=== PATIENT | male | born 1955 | race Caucasian/White ===

== ENCOUNTER 2017-05-24 21:52 | Emergency (ER) | payer BC ==
[~2017-05-24] VITALS: Ht 170.2 cm; Wt 93.6 kg
[2017-05-24 22:01] VITALS: BP 177/84; PULSE 77; RESP 20; TEMP 98; O2SAT 97
[2017-05-24] MEDS ORDERED: SODIUM CHLOR 0.9% 1000 ML INJ 1,000 ML IV SCH (22:10)
--- NOTE | 2017-05-24 22:13 | PD ---
HPI Chief Complaint: Abdominal Pain Time Seen by Provider: 22:06 Travel History International Travel<30 days: No Contact w/Intl Traveler<30days: No Traveled to known affect area: No History of Present Illness HPI ABOUT 2 HRS AGO, NEW ONSET OF LLQ PAIN, FULLNESS TO CRAMPY, NONRADIATING, 03/01, ASSOCIATED WITH DIARRHEA AND NAUSEA BUT WITHOUT VOMITING...ALSO DENIES NAVARRO/CP/ FEVER/COUGH/BACK PAIN/HEMATURIA/ ALL:NKDA PMHX/PSHX: PERIPHERAL ARTERY DISEASE, HERNIA REPAIR PFSH Social History Tobacco Use: No Allergies-Medications (Allergen,Severity, Reaction): Coded Allergies: No Known Allergies (Verified Allergy, Unknown, 05/24/17) Reported Meds & Prescriptions Reported Meds & Active Scripts Active Lortab (Hydrocodone-Acetaminophen) 5-325 Mg Tab 1 Tab PO Q6H PRN Zofran Odt (Ondansetron Odt) 4 Mg Tab 4 Mg SL Q6HR PRN Ketorolac (Ketorolac Tromethamine) 10 Mg Tab 10 Mg PO TID Review of Systems Except as stated in HPI: all other systems reviewed are Neg General / Constitutional: No: Fever Eyes: No: Visual changes HENT: No: Headaches Cardiovascular: No: Chest Pain or Discomfort Respiratory: No: Shortness of Breath Gastrointestinal: Positive: Abdominal Pain Genitourinary: No: Dysuria Musculoskeletal: No: Pain Skin: No Rash Neurologic: No: Weakness Psychiatric: No: Depression Endocrine: No: Polydipsia Hematologic/Lymphatic: No: Easy Bruising Physical Exam Narrative GENERAL: SKIN: Warm and dry. HEAD: Atraumatic. Normocephalic. EYES: Pupils equal and round. No scleral icterus. No injection or drainage. ENT: No nasal bleeding or discharge. Mucous membranes pink and moist. NECK: Trachea midline. No JVD. CARDIOVASCULAR: Regular rate and rhythm. RESPIRATORY: No accessory muscle use. Clear to auscultation. Breath sounds equal bilaterally. GASTROINTESTINAL: Abdomen soft, non-tender, nondistended. LLQ TTP MUSCULOSKELETAL: Extremities without clubbing, cyanosis, or edema. No obvious deformities. NEUROLOGICAL: Awake and alert. No obvious cranial nerve deficits. Motor grossly within normal limits. Five out of 5 muscle strength in the arms and legs. Normal speech. PSYCHIATRIC: Appropriate mood and affect; insight and judgment normal. Data Data Last Documented VS Vital Signs Date Time Temp Pulse Resp B/P (MAP) Pulse Ox O2 Delivery O2 Flow Rate FiO2 05/24/17 23:31 77 18 95 05/24/17 23:28 97.9 Room Air Orders Orders Complete Blood Count With Diff (05/24/17 22:06) Comprehensive Metabolic Panel (05/24/17 22:06) Lipase (05/24/17 22:06) Urinalysis - C+S If Indicated (05/24/17 22:06) Ct Abd/Pel W/O Iv Contrast (05/24/17 22:06) Iv Access Insert/Monitor (05/24/17 22:06) Ecg Monitoring (05/24/17 22:06) Oximetry (05/24/17 22:06) NPO (05/24/17 22:) Electrocardiogram (05/24/17 22:06) Sodium Chlor 0.9% 1000 Ml Inj (Ns 1000 M (05/24/17 22:10) Morphine Inj (Morphine Inj) (05/24/17 22:45) Labs Laboratory Tests Test 05/24/17 22:20 White Blood Count 4.6 TH/MM3 Red Blood Count 4.17 MIL/MM3 Hemoglobin 12.4 GM/DL Hematocrit 36.7 % Mean Corpuscular Volume 88.0 FL Mean Corpuscular Hemoglobin 29.6 PG Mean Corpuscular Hemoglobin Concent 33.7 % Red Cell Distribution Width 11.8 % Platelet Count 142 TH/MM3 Mean Platelet Volume 8.1 FL Neutrophils (%) (Auto) 69.5 % Lymphocytes (%) (Auto) 21.4 % Monocytes (%) (Auto) 7.0 % Eosinophils (%) (Auto) 1.5 % Basophils (%) (Auto) 0.6 % Neutrophils # (Auto) 3.2 TH/MM3 Lymphocytes # (Auto) 1.0 TH/MM3 Monocytes # (Auto) 0.3 TH/MM3 Eosinophils # (Auto) 0.1 TH/MM3 Basophils # (Auto) 0.0 TH/MM3 CBC Comment DIFF FINAL Differential Comment Blood Urea Nitrogen 16 MG/DL Creatinine 0.98 MG/DL Random Glucose 138 MG/DL Total Protein 6.6 GM/DL Albumin 3.5 GM/DL Calcium Level 8.3 MG/DL Alkaline Phosphatase 62 U/L Aspartate Amino Transf (AST/SGOT) 21 U/L Alanine Aminotransferase (ALT/SGPT) 31 U/L Total Bilirubin 0.3 MG/DL Sodium Level 140 MEQ/L Potassium Level 3.6 MEQ/L Chloride Level 105 MEQ/L Carbon Dioxide Level 28.4 MEQ/L Anion Gap 7 MEQ/L Estimat Glomerular Filtration Rate 78 ML/MIN Lipase 143 U/L MDM Medical Decision Making Medical Screen Exam Complete: Yes Emergency Medical Condition: Yes Medical Record Reviewed: Yes Differential Diagnosis COLITIS V DIVERTIC V KIDNEY STONES Narrative Course CT SHOWED NO DIVERTIC OR COLITIS BUT IT DID SHOW KIDNEY STONES Diagnosis Primary Impression: LEFT URETEROLITHIASIS Patient Instructions: General Instructions, Kidney Stones (ED) Scripts Hydrocodone-Acetaminophen (Lortab) 5-325 Mg Tab 1 TAB PO Q6H Y for PAIN, #20 TAB 0 Refills Prov: Arash Almeida MD 05/24/17 Ondansetron Odt (Zofran Odt) 4 Mg Tab 4 MG SL Q6HR Y for Nausea/Vomiting, #20 TAB 0 Refills Prov: Arash Almeida MD 05/24/17 Ketorolac (Ketorolac) 10 Mg Tab 10 MG PO TID for Pain Management, #21 TAB 0 Refills Prov: Arash Almeida MD 05/24/17 Disposition: 01 DISCHARGE HOME Condition: Stable Arash Almeida MD May 24, 2017 22:13
[2017-05-24 22:14] VITALS: O2SAT 97
[2017-05-24] MEDS ORDERED: MORPHINE SULFATE 4 MG/ML INJ IV PUSH ONE ×2 (22:15→22:30)
[2017-05-24] MEDS ORDERED: ONDANSETRON HCL 4 MG/2 ML VIAL IVP ONE (22:15)
[2017-05-24 22:22] LABS: AUTOMATED NEUTROPHIL # 3.2 TH/MM3 (1.8-7.7); BASOPHIL % 0.6 % (0.0-2.0); EOSINOPHIL # 0.1 TH/MM3 (0-0.4); EOSINOPHIL % 1.5 % (0.0-4.0); HEMATOCRIT 36.7 % (39.0-51.0); HEMO FLAGS DIFF FINAL; LYMPH % 21.4 % (9.0-44.0); MEAN CORPUSCULAR HEMOGLOBIN 29.6 PG (27.0-34.0); MEAN CORPUSCULAR HGB CONC 33.7 % (32.0-36.0); NEUT % 69.5 % (16.0-70.0); PLATELET COUNT 142 TH/MM3 (150-450); RED BLOOD COUNT 4.17 MIL/MM3 (4.50-5.90); RED CELL DISTRIBUTION WIDTH 11.8 % (11.6-17.2); WHITE BLOOD COUNT 4.6 TH/MM3 (4.0-11.0)
[2017-05-24 22:29] LABS: CHLORIDE 105 MEQ/L (98-107); POTASSIUM 3.6 MEQ/L (3.5-5.1); SODIUM (NA) 140 MEQ/L (136-145)
[2017-05-24 22:32] LABS: ANION GAP 7 MEQ/L (5-15); BICARBONATE 28.4 MEQ/L (21.0-32.0); BLOOD UREA NITROGEN 16 MG/DL (7-18)
[2017-05-24 22:35] LABS: ALT (GPT) 31 U/L (12-78); AST (GOT) 21 U/L (15-37); GLOMERULAR FILTRATION RATE 78 ML/MIN (>89)
[2017-05-24 22:37] LABS: TOTAL BILIRUBIN ADULT 0.3 MG/DL (0.2-1.0)
[2017-05-24 22:38] LABS: ALKALINE PHOSPHATASE 62 U/L (45-117)
[2017-05-24] MEDS ORDERED: MORPHINE SULFATE 2 MG/ML INJ IV ONE (22:45)
--- NOTE | 2017-05-24 22:47 | RADRPT ---
EXAM DATE/TIME: 05/24/2017 22:27 [facility] COMPARISON: No previous studies available for comparison. INDICATIONS : Nausea, diarrhea. Left lower quadrant pain for 2 hours. ORAL CONTRAST: No oral contrast ingested. RADIATION DOSE: 21.42 CTDIvol (mGy) ; Patient body habitus MEDICAL HISTORY : None SURGICAL HISTORY : hernia repair ENCOUNTER: Initial ACUITY: 1 day PAIN SCALE: 8/10 LOCATION: Left lower quadrant TECHNIQUE: Volumetric scanning of the abdomen and pelvis was performed. Using automated exposure control and ad justment of the mA and/or kV according to patient size, radiation dose was kept as low as reasonably achievable to obtain optimal diagnostic quality images. DICOM format image data is available electro nically for review and comparison. FINDINGS: LOWER LUNGS: The visualized lower lungs are clear. LIVER: Homogeneous density without lesion. There is no dilation of the biliary tree. No calcified gallston es. SPLEEN: Normal size without lesion. PANCREAS: Within normal limits. KIDNEYS: Normal in size and shape. There is inflammatory change surrounding the left kidney with wispy soft t issue densities extending out into the saray-renal fascia. There is no drainable fluid collection or g as. There is no mass, stone, or hydronephrosis. There is a tiny 1-2 mm distal left ureteral calculus just above the level of the ureterovesicular junction. There is no hydroureter. ADRENAL GLANDS: Within normal limits. VASCULAR: There is no aortic aneurysm. BOWEL/MESENTERY: No oral contrast was given limiting sensitivity. The stomach, small bowel, and colon demonstrate no a cute abnormality. There is no free intraperitoneal air or fluid. ABDOMINAL WALL: Within normal limits. RETROPERITONEUM: There is no lymphadenopathy. BLADDER: No wall thickening or mass. REPRODUCTIVE: Within normal limits. INGUINAL: There is no lymphadenopathy or hernia. MUSCULOSKELETAL: Within normal limits for patient age. CONCLUSION: 1. Tiny 1-2 mm distal left ureteral calculus just above the level of the ureterovesicular junction. 2. Inflammatory change surrounding the left kidney with no hydronephrosis. Garrison Calabrese MD on May 24, 2017 at 22:42 Board Certified Radiologist. This report was verified electronically.
[2017-05-24] MEDS ORDERED: KETO10 PO (23:15)
[2017-05-24] MEDS ORDERED: HYDR-3533 PO (23:15)
[2017-05-24] MEDS ORDERED: ZOFR4TAB3 SL (23:15)
[2017-05-24 23:28] VITALS: BP 123/74; PULSE 77; RESP 18; TEMP 97.9; O2SAT 95
--- NOTE | 2017-05-25 09:15 | EKG ---
Date Performed: 05/24/2017 Time Performed: 22:19:18 PTAGE: 62 years EKG: Sinus rhythm NORMAL ECG NO PREVIOUS TRACING DOCTOR: Alexandro Wallace Interpretating Date/Time 05/25/2017 09:11:59
== END 2017-05-24 23:36 | disposition home or self-care (01) ==
LOC: PHED 21:52
DX: N20.1 Calculus of ureter (principal); R19.7 Diarrhea, unspecified; I73.9 Peripheral vascular disease, unspecified
CPT/HCPCS: 74176; 80053; 83690; 85025; 93005; 96360; 99285; J7030